=== PATIENT | female | born 1960 | race African-American/Black ===

== ENCOUNTER 2017-05-01 17:27 | Emergency (ER) | payer OTHER ==
[~2017-05-01] VITALS: Ht 162.6 cm; Wt 77.1 kg
[2017-05-01] MEDS ORDERED: IBUPROFEN600 MG ORAL (19:41)
[2017-05-01 19:52] VITALS: BP 148/85
--- NOTE | 2017-05-01 22:33 | Emergency Room Report ---
History of Present Illness General Chief Complaint: Lower Extremity Injury Source: Patient Present Illness HPI The patient is a 57-year-old female presenting for injury to both feet. She states that approximately one week prior, the metal piece of a bus ramp fell onto the feet. Pain has persisted and is now a 7/10 dull ache to both feet. Worse with walking. she denies any numbness or tingling. She denies any other injuries or symptoms Allergies: Coded Allergies: No Known Allergies (Unverified , 05/01/17) Patient History Past Medical History: see triage record Pertinent Family History: none Last Menstrual Period: N/A Reviewed Nursing Documentation: PMH: Agreed, PSxH: Agreed Review of Systems All Other Systems: negative except mentioned in HPI Physical Exam Vital Signs Date Time Temp Pulse Resp B/P Pulse Ox O2 Delivery O2 Flow Rate FiO2 05/01/17 17:51 97.9 18 18 148/85 100 Room Air Sp02 EP Interpretation: reviewed, normal General Appearance: no apparent distress, alert, GCS 15, non-toxic Head: normocephalic, atraumatic Eyes: bilateral eye PERRL, bilateral eye normal inspection ENT: hearing grossly normal, normal pharynx, no angioedema, normal voice Musculoskeletal: normal range of motion, no calf tenderness, swelling - diffuse R foot, tender - diffuse TTP over the R foot. TTP across L foot all toes Neurologic: alert, oriented x3, responsive, motor strength/tone normal, sensory intact, speech normal Psychiatric: judgement/insight normal, memory normal, mood/affect normal, no suicidal/homicidal ideation Skin: normal color, no rash, warm/dry, well hydrated Procedures Splinting Splinting : Consent: Verbal Location: R foot Pre-Made Type: walking boot Pre-Proc Neuro Vasc Exam: normal Post-Proc Neuro Vasc Exam: normal Patient Tolerated: Well Complications: None Medical Decision Making PA Attestation Dr. Washington is my supervising physician. Patient management was discussed with my supervising physician Diagnostic Impression: Primary Impression: Contusion of foot, right Additional Impression: Contusion of foot, left ER Course The patient is a 57-year-old female presenting for injury to both feet Ddx considered include but not limited to sprain/strain, fracture, contusion PE: NAD There is diffuse TTP over the R foot as well as swelling. Full AROM. No ecchymosis. There is TTP across the L toes. No deformity. No ecchymosis. Full AROM of toes. Xray of both feet unremarkable Walking boot is placed over the right foot and the patient is provided crutches. She will follow up with primary doctor. Prescription for pain medication given ER precautions are given Other X-Ray Diagnostic Results Other X-Ray Diagnostic Results #1: X-Ray ordered: R foot # of Views/Limited Vs Complete: 3 View Indication: Pain EP Interpretation: Yes Interpretation: no dislocation, no soft tissue swelling, no fractures Impression: No acute disease Interpreting ER Provider: Dr. Felix Altmanibe Text I'm acting as scribe for my supervising physician. My supervising physician's interpretation of the R foot xrays are there are no fractures, dislocations or soft tissue swelling. Other X-Ray Diagnostic Results #2: X-Ray ordered: L foot # of Views/Limited Vs Complete: 3 View Indication: Pain EP Interpretation: Yes Interpretation: no dislocation, no soft tissue swelling, no fractures Impression: No acute disease Interpreting ER Provider: Dr. Felix Huitron Text I'm acting as scribe for my supervising physician. My supervising physician's interpretation of the L foot xrays are there are no fractures, dislocations or soft tissue swelling. Last Vital Signs Date Time Temp Pulse Resp B/P Pulse Ox O2 Delivery O2 Flow Rate FiO2 05/01/17 19:52 97.9 18 148/85 100 Room Air 05/01/17 17:51 18 Status: improved Disposition: HOME, SELF-CARE Condition: Improved Scripts Ibuprofen* (MOTRIN*) 600 Mg Tablet 600 MG ORAL Q8H Y for For Pain, #30 TAB 0 Refills Prov: LINDSEY MONTOYA 05/01/17 Patient Instructions: Foot Contusion Additional Instructions: I discussed my findings with the patient. All questions and concerns have been answered. Treatment and medication compliance have been addressed. I advised the patient that they need to follow up with PMD in 3-5 days. Return to ED if pain remains or worsens, numbness or tingling occurs, new rash is noticed, fever is noticed, or if needed for any reason. Patient verbalized understanding of discharge instructions. LINDSEY MONTOYA May 01, 2017 22:33
--- NOTE | 2017-05-02 10:52 | Diagnostic Imaging Report ---
Indication: Pain Comparison: None Findings: 3 views of the left foot were obtained. No acute fractures, malalignment, erosions or periostitis are identified. Bone mineralization is within normal limits. Soft tissues are unremarkable. Impression: No acute findings
--- NOTE | 2017-05-02 10:53 | Diagnostic Imaging Report ---
Indication: Pain Comparison: None Findings: 3 views of the right foot were obtained. No acute fractures, malalignment, erosions or periostitis are identified. Bone mineralization is within normal limits. Soft tissues are unremarkable. Impression: Negative examination of the right foot.
== END 2017-05-01 19:53 | disposition home or self-care (01) ==
LOC: EMR 18:40
DX: S90.32XA Contusion of left foot, initial encounter (principal); S90.31XA Contusion of right foot, initial encounter; W22.8XXA Striking against or struck by other objects, initial encounter; Y93.9 Activity, unspecified; Y92.811 Bus as the place of occurrence of the external cause
CPT/HCPCS: 29540; 99284